=== PATIENT | male | born 1975 | race Two or more races ===

== ENCOUNTER 2022-03-31 20:59 | Inpatient (IN) | payer MEDICAID ==
[~2022-03-31] VITALS: Ht 170.2 cm; Wt 79.8 kg
--- NOTE | 2022-03-31 21:15 | NUR ---
JAY [address] WITH INFECTED WOUND ON LEFT LOWER LEG. PATIENT IS AAOX4. ABLE TO MAKE NEEDS KNOWN. VITALS CHECKED.
--- NOTE | 2022-03-31 21:47 | NUR ---
CLEANING OF WOUND DONE AT BEDSIDE
--- NOTE | 2022-03-31 21:56 | NUR ---
SEEN BY MD AT BEDSIDE
[2022-03-31] MEDS ORDERED: CEFEPIME 1 GM in IV D5W 50 ML IV ONE (22:00)
[2022-03-31] MEDS ORDERED: VANCOMYCIN 1 GM in IV D5W 250 ML IV ONE (22:00)
[2022-03-31] MEDS ORDERED: CEFEPIME 1 GM VIAL ONE (22:04)
--- NOTE | 2022-03-31 22:42 | NUR ---
IV CANNULA G20 INSERTED ON LEFT FA.
--- NOTE | 2022-03-31 22:43 | NUR ---
COVID SWAB DONE AND SENT TO LAB
--- NOTE | 2022-03-31 22:48 | NUR ---
XRAY DONE AT BEDSIDE
--- NOTE | 2022-03-31 22:49 | NUR ---
ACADEMIC SUPPORT DIRECTOR AT BEDSIDE
[2022-03-31] MEDS ORDERED: VANCOMYCIN 1 GM VIAL ONE (23:04)
--- NOTE | 2022-03-31 23:10 | NUR ---
SEEN BY RONI JESSICA AT BEDSIDE
[2022-03-31] MEDS ORDERED: MAGNESIUM HYDROXIDE 30 ML UDC PO PRN (23:30)
[2022-03-31] MEDS ORDERED: ONDANSETRON HCL/PF 4 MG/2 ML VIAL IVP PRN (23:30)
[2022-03-31] MEDS ORDERED: ZOLPIDEM TARTRATE 5 MG TABLET PO PRN (23:30)
[2022-03-31] MEDS ORDERED: MAG HYDROX/AL HYDROX/SIMETH 30 ML UDC PO PRN (23:30)
[2022-03-31] MEDS ORDERED: Z GUARD REMEDY 4 OZ OINT TP PRN (23:30)
[2022-03-31] MEDS ORDERED: HYDROMORPHONE INJ 2 MG/ML DISP.SYRIN IV PRN (23:30)
[2022-03-31] MEDS ORDERED: ACETAMINOPHEN 325 MG TABLET PO PRN (23:30)
[2022-04-01 00:06] LABS: BASOPHILS % (AUTO) 0.1 % (0.0-2.0); EOSINOPHILS % (AUTO) 0.1 % (0.0-6.0); HEMATOCRIT 23 % (39-51); HEMOGLOBIN 7.5 g/dL (13.5-17.5); LYMPHOCYTES # (AUTO) 0.7 K/uL (0.8-4.8); LYMPHOCYTES % (AUTO) 4.6 % (20.0-44.0); MEAN CORPUSCULAR HGB CONC 33 g/dl (31.0-36.0); MEAN CORPUSCULAR VOLUME 88 fL (80-96); MONOCYTES # (AUTO) 1.3 K/uL (0.1-1.30); MONOCYTES % (AUTO) 8.8 % (2.0-12.0); NEUTROPHILS # (AUTO) 12.8 K/uL (1.8-8.9); NEUTROPHILS % (AUTO) 86.4 % (43.0-81.0); PLATELET COUNT (AUTO) 345 K/uL (150-450); RED BLOOD CELL COUNT(AUTO) 2.55 MIL/uL (4.5-6.0); WHITE BLOOD COUNT (AUTO) 14.9 K/uL (4.3-11.0)
[2022-04-01 00:23] LABS: CALCIUM, SERUM 7.4 mg/dL (8.5-10.1); CREATININE 1.5 mg/dL (0.6-1.3); POTASSIUM 3.7 mmol/L (3.5-5.1)
[2022-04-01 00:25] LABS: C-REACTIVE PROTEIN 13.1 mg/dL (0.0-0.9)
[2022-04-01 00:37] LABS: ALBUMIN 1.5 g/dL (3.4-5.0); BILIRUBIN,TOTAL 0.8 mg/dL (0.2-1.0)
--- NOTE | 2022-04-01 02:30 | NUR ---
REPORT GIVEN RN MAY
--- NOTE | 2022-04-01 03:00 | NUR ---
MS RN ADMITTING NOTE RECEIVED REPORT FROM ER NURSE, VENKAT. PATIENT IS BEING TRANSPORTED ON GURNEY TO HIS ROOM ON . PATIENT IS ALERT AND ORIENTED, AO X 4. HE IS [place] SPEAKING, RN,SEPTEMBER, FINISHED INITIAL INTERVIEW IN [place]. PATIENT DENIES OF HAVING PAIN AT THIS MOMENT. PATIENT IS ON RA, NO S/S SOB OR DISTRESS. HIS IV ACCESS IS ON HIS LEFT FA, #20, SL. PATENT AND INTACT. PATIENT HAS LARGE WOUND ON HIS LEFT LOWER EXTREMITIES, SWELLING, WARM TO TOUCH, AND SOME OPEN WOUNDS ALSO HAVE SCANTY AMOUNT OF DRAINAGE. ORIENTED THE PATIENT WITH SURROUNDINGS, AND TEACH HIM HOW TO USE CALL HALE TO CALL FOR HELP. VITAL SIGNS WERE TAKEN BY MARJAN VILLANUEVA; PLEASE SEE METER ATTENDANT NOTES. PICTURES OF THE WOUND WERE TAKEN AND PRINTED OUT, BEING PUT IN THE PATIENT'S CHART. SAFETY MEASURES ARE IN PLACE: BED IN LOW AND LOCKED POSITION; CALL HALE IS IN REACH; SIDE RAILS UP X 2. WILL MONITOR THE PATIENT'S CONDITION AND PROVIDE THE CARE HE NEEDS.
--- NOTE | 2022-04-01 03:02 | NUR ---
TRANSFERRED TO ROOM
[2022-04-01] MEDS: IV NS 0.9% 1,000 ML IV PRN (04:32)
[2022-04-01 06:04] LABS: BASOPHILS % (AUTO) 0.2 % (0.0-2.0); EOSINOPHILS % (AUTO) 0.1 % (0.0-6.0); HEMATOCRIT 23 % (39-51); HEMOGLOBIN 7.5 g/dL (13.5-17.5); LYMPHOCYTES # (AUTO) 0.7 K/uL (0.8-4.8); LYMPHOCYTES % (AUTO) 5.5 % (20.0-44.0); MEAN CORPUSCULAR HGB CONC 32 g/dl (31.0-36.0); MEAN CORPUSCULAR VOLUME 89 fL (80-96); MONOCYTES # (AUTO) 1.2 K/uL (0.1-1.30); MONOCYTES % (AUTO) 9.4 % (2.0-12.0); NEUTROPHILS # (AUTO) 10.7 K/uL (1.8-8.9); NEUTROPHILS % (AUTO) 84.8 % (43.0-81.0); PLATELET COUNT (AUTO) 343 K/uL (150-450); RED BLOOD CELL COUNT(AUTO) 2.62 MIL/uL (4.5-6.0); WHITE BLOOD COUNT (AUTO) 12.6 K/uL (4.3-11.0)
[2022-04-01 06:34] LABS: CREATININE 1.4 mg/dL (0.6-1.3); MAGNESIUM 1.7 mg/dL (1.8-2.4); PHOSPHORUS 3.5 mg/dL (2.5-4.9); POTASSIUM 3.4 mmol/L (3.5-5.1)
--- NOTE | 2022-04-01 07:30 | NUR ---
RN Opening Note Patient AOx4 able to express his own concerns. Patient states no issues, asking to wait on wound care since it was changed 3 hrs ago. Patient with no signs of distress or discomfort. IV with no signs of infiltration, no respiratory distress. Patient states he would like to walk to the bathroom with assistance for BM, educated on safety precautions. Will continue to monitor and provide care throughout shift. All safety precautions taken, call light and table within reach, bed locked and at lowest position.
--- NOTE | 2022-04-01 07:35 | NUR ---
MS RN CLOSING NOTE PATIENT IS IN BED SLEEPING. HE IS CALM, NO S/S OF HAVING PAIN AT THIS MOMENT. PATIENT IS ON RA, NO S/S SOB OR DISTRESS. PATIENT'S IV ACCESS IS ON HIS LEFT FA, #20, RUNNING NS @100 ML/HOUR; PATENT AND INTACT. PATIENT'S WOUND DRESSING HAS BEEN CLEANED AND CHANGED DUE TO THE OLD DRESSING WAS SOILED. PATIENT'S LEFT LOWER EXTREMITY IS SWELLING AND WARM TO TOUCH. ELEVATED PATIENT'S FEET AND FLOATING HIS HEELS. SAFETY MEASURES ARE IN PLACE: BED IN LOW AND LOCKED POSITION; CALL HALE IS IN REACH; SIDE RAILS UP X 2. WILL ENDORSE THE NEXT SHIFT NURSE FOR CONTINUE PATIENT CARE.
[2022-04-01 08:00] VITALS: BP 126/74
--- NOTE | 2022-04-01 08:36 | NUR ---
WOUND CARE CONSULT: PT EATING BREAKFAST. REVIEWED CHART, NURSING DOCUMENTATION AND PHOTOS WHICH INDICATE PURULENT WOUNDS TO LOWER EXTREMITIES, PRESENT ON ADMISSION. DR MIRANDA CALLED FOR DPM CONSULT. MD IN AGREEMENT WITH PLAN OF CARE.
[2022-04-01] MEDS ORDERED: [UNRECOGNIZED DRUG - REMARK] PO (09:02)
[2022-04-01] MEDS ORDERED: UNK HTN PO (09:02)
[2022-04-01] MEDS: CEFEPIME 2 GM in IV D5W 100 ML IV SCH ×2 (09:58→20:57)
[2022-04-01] MEDS ORDERED: CEFEPIME 1 GM in IV D5W 50 ML IV SCH (10:00)
[2022-04-01] MEDS: VANCOMYCIN 1 GM in IV D5W 250ml IV SCH ×2 (11:19→22:23)
[2022-04-01] MEDS ORDERED: POTASSIUM CHLORIDE 20 MEQ TAB.PRT.SR PO SCH (11:30)
[2022-04-01] MEDS: Magnesium 1GM/D5W 100ML PREMIX 100 ML IV SCH ×2 (12:35→12:36)
[2022-04-01 16:00] VITALS: BP 145/75
--- NOTE | 2022-04-01 16:57 | NUR ---
SS consult received for possible homelessness. SW will follow up at a later time.
--- NOTE | 2022-04-01 18:53 | NUR ---
RN Closing Report Patient AOx4 able to express his own concerns. Patient remained stable throughout shift. All safety precautions taken. Call light and table within reach, bed at lowest position. Patient made aware of plan for wound treatment tomorrow and he verbalized agreement. Provided care as ordered and administered medications as prescribed. Will endorse to night nurse for continuity of care
--- NOTE | 2022-04-01 19:20 | NUR ---
MS RN OPENING NOTES RECEIVED PT IN BED SLEEPING AT THIS TIME. AROUSABLE TO NAME, A/O X4, ABLE TO MAKE NEEDS KNOWN. ON RA WITH NO S/S OF SOB OR LABORED BREATHING. DENIES PAIN AT THIS TIME. LLE DRESSING INTACT. IV LFA #20G PATENT AND INTACT, RUNNING NS @ 100 ML/HR. SAFETY MEASURES IN PLACE: BED LOCKED AND IN LOW POSITION, SIDE RAILS UP X2, CALL LIGHT WITHIN REACH. WILL CONTINUE TO MONITOR AND ASSIST.
[2022-04-01 20:00] VITALS: BP 119/72
[2022-04-02] MEDS: IV NS 0.9% 1,000 ML IV PRN (02:22)
[2022-04-02 05:55] LABS: BASOPHILS % (AUTO) 0.5 % (0.0-2.0); EOSINOPHILS % (AUTO) 0.2 % (0.0-6.0); HEMATOCRIT 23 % (39-51); HEMOGLOBIN 7.5 g/dL (13.5-17.5); LYMPHOCYTES # (AUTO) 0.9 K/uL (0.8-4.8); LYMPHOCYTES % (AUTO) 9.6 % (20.0-44.0); MEAN CORPUSCULAR HGB CONC 33 g/dl (31.0-36.0); MEAN CORPUSCULAR VOLUME 89 fL (80-96); MONOCYTES # (AUTO) 0.8 K/uL (0.1-1.30); MONOCYTES % (AUTO) 9.3 % (2.0-12.0); NEUTROPHILS # (AUTO) 7.3 K/uL (1.8-8.9); NEUTROPHILS % (AUTO) 80.4 % (43.0-81.0); PLATELET COUNT (AUTO) 331 K/uL (150-450); RED BLOOD CELL COUNT(AUTO) 2.56 MIL/uL (4.5-6.0); WHITE BLOOD COUNT (AUTO) 9.1 K/uL (4.3-11.0)
[2022-04-02 06:44] LABS: CALCIUM, SERUM 7.6 mg/dL (8.5-10.1); CREATININE 1.3 mg/dL (0.6-1.3); MAGNESIUM 1.9 mg/dL (1.8-2.4)
[2022-04-02 06:49] LABS: BILIRUBIN,URINE NEGATIVE (NEGATIVE); COLOR,URINE YELLOW (YELLOW); LEUKOCYTE ESTERASE ,URINE NEGATIVE (NEGATIVE); NITRITE, URINE NEGATIVE (NEGATIVE); PH,URINE 5.5 (5.0-8.0); PROTEIN,URINE NEGATIVE (NEGATIVE); UGLUCOSE NEGATIVE (NEGATIVE)
[2022-04-02] MEDS ORDERED: SUCCINYLCHOLINE CHLORIDE 20 MG/ML VIAL ONE (07:12)
[2022-04-02] MEDS ORDERED: HYDROMORPHONE INJ 2 MG/ML DISP.SYRIN ONE (07:12)
--- NOTE | 2022-04-02 07:15 | NUR ---
MS RN CLOSING NOTES PT IN BED AWAKE AT THIS TIME. AROUSABLE TO NAME, A/O X4, ABLE TO MAKE NEEDS KNOWN. STABLE ON RA WITH NO S/S OF SOB OR LABORED BREATHING. DENIES PAIN AT THIS TIME. LLE OUTER DRESSING REPLACED. IV RIGHT UPPER ARM MIDLINE PATENT AND INTACT, RUNNING NS @ 100 ML/HR. ALL CARE PROVIDED AND ADMINISTERED MEDICATIONS TOLERATED WELL. SURGERY STAFF ARRIVED AT UNIT TO LOG BUNCHER PATIENT FOR DEBRIDEMENT. SAFETY MEASURES MAINTAINED: BED LOCKED AND IN LOW POSITION, SIDE RAILS UP X2, CALL LIGHT WITHIN REACH. WILL ENDORSE AKILA TO DAY SHIFT NURSE.
--- NOTE | 2022-04-02 07:30 | NUR ---
RN Opening Note Patient AOx4 able to express his own concerns. Patient states no issues, Patient states he is ready for the scheduled wound debridement. IV with no signs of infiltration, no respiratory distress. Patient states he would like to walk to the bathroom with assistance for BM, educated on safety precautions. Will continue to monitor and provide care throughout shift. All safety precautions taken, call light and table within reach, bed locked and at lowest position.
[2022-04-02] MEDS ORDERED: ANESTHESIA TRAY IN PYXIS 1 EA TRAY MC ONE (07:34)
[2022-04-02] MEDS ORDERED: BUPIVACAINE 0.5 % PF 150 MG/30 ML VIAL ONE (07:35)
[2022-04-02] MEDS ORDERED: LIDOCAINE HCL/MPF 1% 30 ML VIAL IJ ONE (07:36)
[2022-04-02 07:40] LABS: BACTERIA,URINE Few /HPF (None Seen); SQUAMOUS EPITHELIAL CELL,UR Rare /HPF (None Seen); WBC,URINE 0-2 /HPF (0-3)
[2022-04-02] MEDS ORDERED: HYDROGEN PEROXIDE 480 ML BOTTLE ONE (08:17)
[2022-04-02] MEDS ORDERED: MEPERIDINE25 MG SYR 25 MG/ML VIAL ONE (08:55)
[2022-04-02] MEDS: CEFEPIME 2 GM in IV D5W 100 ML IV SCH ×2 (09:54→20:51)
[2022-04-02] MEDS: VANCOMYCIN 1 GM in IV D5W 250ml IV SCH (10:44)
[2022-04-02 16:25] VITALS: BP 132/71
--- NOTE | 2022-04-02 18:38 | NUR ---
RN Closing Report Patient AOx4 able to express his own concerns. Patient remained stable throughout shift. All safety precautions taken. Call light and table within reach, bed at lowest position. Patient educated on wound back and precautions needed. Provided care as ordered and administered medications as prescribed. Will endorse to night nurse for continuity of care
--- NOTE | 2022-04-02 19:23 | NUR ---
MS RN OPENING NOTES PT IN BED AWAKE AT THIS TIME. AROUSABLE TO NAME, A/O X4, ABLE TO MAKE NEEDS KNOWN. STABLE ON RA WITH NO S/S OF SOB OR LABORED BREATHING. DENIES PAIN AT THIS TIME. LLE OUTER DRESSING REPLACED. IV RIGHT UPPER ARM MIDLINE PATENT AND INTACT, RUNNING NS @ 100 ML/HR. ALL CARE. PT S/P DEBRIDEMENT AND WOUND VAC PLACEMENT TODAY. SAFETY MEASURES MAINTAINED: BED LOCKED AND IN LOW POSITION, SIDE RAILS UP X2, CALL LIGHT WITHIN REACH.
--- NOTE | 2022-04-02 20:30 | NUR ---
RN NOTE RECEIVED A CALL FROM PHARMACIST REGARDING PTS LOVENOX PER PHARMACIST PT HAS BOTH AN ORDER FOR HEPARIN AND LOVENOX PER PHARMACIST WILL D/C LOVENOX.
[2022-04-02 21:06] VITALS: BP 138/90
[2022-04-02] MEDS: VANCOMYCIN 0.75 GM in IV D5W 250 ML IV SCH (23:49)
[2022-04-03] VITALS (10 sets, daily range): BP systolic 138–160; BP diastolic 54–93
[2022-04-03 05:59] LABS: BASOPHILS # (AUTO) 0.1 K/uL (0.0-0.2); BASOPHILS % (AUTO) 1.1 % (0.0-2.0); EOSINOPHILS % (AUTO) 0.8 % (0.0-6.0); LYMPHOCYTES # (AUTO) 1.2 K/uL (0.8-4.8); LYMPHOCYTES % (AUTO) 16.2 % (20.0-44.0); MEAN CORPUSCULAR HGB CONC 33 g/dl (31.0-36.0); MEAN CORPUSCULAR VOLUME 89 fL (80-96); MONOCYTES # (AUTO) 0.7 K/uL (0.1-1.30); MONOCYTES % (AUTO) 9.6 % (2.0-12.0); NEUTROPHILS # (AUTO) 5.3 K/uL (1.8-8.9); NEUTROPHILS % (AUTO) 72.3 % (43.0-81.0); PLATELET COUNT (AUTO) 290 K/uL (150-450); RED BLOOD CELL COUNT(AUTO) 2.19 MIL/uL (4.5-6.0); WHITE BLOOD COUNT (AUTO) 7.3 K/uL (4.3-11.0)
[2022-04-03 06:13] LABS: BILIRUBIN,TOTAL 0.6 mg/dL (0.2-1.0); CALCIUM, SERUM 6.9 mg/dL (8.5-10.1); CREATININE 1.4 mg/dL (0.6-1.3); MAGNESIUM 1.6 mg/dL (1.8-2.4); PHOSPHORUS 3.5 mg/dL (2.5-4.9); POTASSIUM 4.3 mmol/L (3.5-5.1); TOTAL PROTEIN, SERUM 6.8 g/dL (6.4-8.2)
[2022-04-03 06:14] LABS: HEMATOCRIT 20 % (39-51); HEMOGLOBIN 6.5 g/dL (13.5-17.5)
[2022-04-03 06:20] LABS: ALBUMIN 1.3 g/dL (3.4-5.0)
--- NOTE | 2022-04-03 06:46 | NUR ---
RN NOTE RECEIVED CRITICAL LAB RESULT THIS MORNING HGB 6.5, HCT 20 ALBUMIN 1.3 REPORTED TO SURVEILLANCE SYSTEMS ENGINEER SUMMER ASSOCIATE MELISSA RECEIVED ORDER FOR 1 UNIT OF RBC ORDER NOTED AND CARRIED OUT.
--- NOTE | 2022-04-03 06:47 | NUR ---
MS RN CLOSING NOTES PT IN BED AWAKE AT THIS TIME. AROUSABLE TO NAME, A/O X4, ABLE TO MAKE NEEDS KNOWN. STABLE ON RA WITH NO S/S OF SOB OR LABORED BREATHING. DENIES PAIN AT THIS TIME. LLE OUTER DRESSING REPLACED. IV RIGHT UPPER ARM MIDLINE PATENT AND INTACT, RUNNING NS @ 100 ML/HR. ALL CARE. PT S/P DEBRIDEMENT AND WOUND VAC PLACEMENT YESTERDAY WOUND VAC TOTAL OUTPUT FOR SHIFT 72CC FOR A TOTAL OF 150CC IN WOUND VAC. SAFETY MEASURES MAINTAINED: BED LOCKED AND IN LOW POSITION, SIDE RAILS UP X2, CALL LIGHT WITHIN REACH. WILL ENDORSE CARE TO DAY SHIFT NURSE.
--- NOTE | 2022-04-03 07:30 | NUR ---
RN OPENING NOTE PATIENT RECEIVED IN BED AND SLEEPING. A/O X4; CITIZEN OF [place] SPEAKING. NO C/O PAIN, NO S/SX OF DISTRESS. MIDLINE IV ACCESS TO ARTIE INTACT AND PATENT. WOUND VAC TO LLE ATTACHED AND SUCTIONING/DRAINING. SAFETY PRECAUTIONS IN PLACE AT THIS TIME WITH BED LOW AND LOCKED. SIDE RAIL UPX2, CALL LIGHT WITHIN REACH. WILL CONT TO MONITOR.
--- NOTE | 2022-04-03 07:31 | NUR ---
WOUND CARE CONSULT: PT SEEN FOR RT BUTTOCK IRRITATION/EXCORIATED AREA. RECOMMENDATIONS MADE FOR SKIN PROTECTION AND DISCUSSED WITH NURSING STAFF. PT IS CONTINENT AT THIS TIME. PT NOTED TO HAVE KCI WOUND VAC TO LEFT LOWER EXTREMITY. VAC AT 125mm Hg CONTINUOUS SETTING WITH 225cc RED DRAINAGE IN CANISTER. WILL FOLLOW. MD IN AGREEMENT WITH PLAN OF CARE.
[2022-04-03] MEDS: CEFEPIME 2 GM in IV D5W 100 ML IV SCH ×2 (08:32→20:02)
[2022-04-03] MEDS ORDERED: Magnesium 1GM/D5W 100ML PREMIX 100 ML IV ONE (10:00)
[2022-04-03] MEDS: VANCOMYCIN 0.75 GM in IV D5W 250 ML IV SCH ×2 (11:45→23:28)
--- NOTE | 2022-04-03 11:50 | NUR ---
SS Consult: SS consult requested for homelessness. The pt. is a 46-year-old male pt. admitted for cellulitis in the lower extremity would. Upon SS consult, the pt. is Alert & Oriented x 4 and makes good eye contact. The pt. appears unkempt with depressed mood & affect. Pt.s speech is clear and thought process is WNL. Pt. remained, calm & cooperative throughout interview. Pt. denies SI/HI and states he has intermittent visual and auditory hallucinations. per pt. the hallucinations have recently began and pt. stated they tend to happen when he has been drinking without eating. Pt. denies commanding voices. BABAR explored pt.s living situation. Patient states he is experiencing homelessness and has been staying on the street and he was walking with no shoes on when it was raining and believes that how he got an infection. Pt. stated he does not have any income. SW explored pt.s drug & ETOH use. Pt. denies any drug use. Per pt. he drinks as often as possible. Per pt. he drinks about 3-5 beers almost daily. Pt. stated he is independent with some ADLs and needs assistance with others due to trouble ambulating. BABAR explored pt.s support system. Pt. states he has no support system. Plan: Pt. stated he is experiencing homelessness. Pt. signed homeless waiver and it was placed in the pt.s chart. BABAR discussed DC plan with Preeti GOODEN and discharge plan is jail vs. SNF placement, pending MD recommendation. BABAR provided pt. with the following homeless resources and pt. accepted them: Year-round shelters: [facility] [address] [place], [place] [phone] ; [facility] [address] [place] [address]; [facility] [id number] [facility]. [facility] [id number] Hygiene: [facility]: [address] [address] ; [facility] [address] [facility] ; [facility] [address] . Food Resources: [facility]- [address] [place]; Meet Each Need with Dignity ([facility]) [address] [place]; [facility] 15[address] [facility]; [facility] [address] [facility] [place]. Mental Health resources provided: [facility] [address] [place], [place] [address] ; [facility] [address] [facility] [address], [place], [place] [phone] ; [facility] [address] [facility] [place], [place] [phone] ; [facility] [address] [place], [place] [address] Healthcare Clinics: [facility] [address] [facility], [address] [place]. [place] ; [facility] [address] [facility] [address] [place] [address]; [facility] [address] [facility] [place] [address] [phone] Counseling--Outpatient [facility] [address] [facility] [address], [address] [place], [place] [address] (Specializes in in-depth psychotherapy for emotional distress: anxiety, depression, interpersonal conflicts, life transitions, childhood abuse) [facility] [address] [place] [address] (Assist with solving problem marital difficulties, separation & divorce, aging parents, & grief, chronic & terminal illness) [facility] [address] [place] [address] (Deal with loss & grief, anxiety, marital difficulties) Homebound/Mental Health Services [address] [facility], [address] [place], [place] [address] (Provide in-home mental services to people who are incapable of leaving their homes) [facility]eds of the Elderly Senior Service/Resource [facility] [address] [place] [address] [facility] [address] [facility] [place] [address] PSYCHIATRIC OUTPATIENT SERVICES [facility] Partial Hospitalization and Intensive Outpatient Program (Managed Care and [place] Only)[address] [facility] [phone] [facility] Partial Hospitalization and Outpatient [id number] [place], [place] [phone] [facility] [id number] [facility]. [address] [place], [place] [phone] [facility] Partial Hospitalization and Outpatient [id number] [facility] ([facility] [place], [phone] Substance Abuse resources provided included: [facility] Substance Abuse Self-Helpline ([facility]) ; CRI -HELP [address] [facility]. [place] [phone] ; [facility] [address] [facility] [address] ; [facility] [address] [facility] [phone] ; [facility] [address] [facility] [id number] ; [facility] 4940 [facility] [phone] ; [facility] 909 [facility] [phone] ; [facility] Substance Abuse Helpline([facility] ; [facility] ; [facility]; [facility]; [facility] [place]; [facility] [place]; [facility] [place]; [facility] [place]; [facility] [place]; [facility], [facility]. [place]; Alcoholics Anonymous -SFV; Zb-Ehht-Qctjvtr ; Marijuana Anonymous -[facility]V; Narcotics Anonymous www.na.org;
[2022-04-03 13:10] LABS: BAND % (MANUAL) 2 % (0.0-5.0); EOSINOPHILS % (MANUAL) 1 % (0-4); LYMPHOCYTES % (MANUAL) 16 % (16-48); MONOCYTES % (MANUAL) 3 % (0-11.0); NEUTROPHILS % (MANUAL) 78 (42-76)
[2022-04-03] MEDS: HYDROCODONE/APAP 10/325MG TABLET PO PRN (17:46)
--- NOTE | 2022-04-03 18:22 | NUR ---
RN CLOSING NOTE PATIENT REMAINED IN BED THROUGHOUT SHIFT. A/O X4, GREEK SPEAKING BUT ABLE TO VERBALIZE ALL NEEDS. RECEIVED 1 UNIT OF PRBC ON SHIFT. TOLERATED TRANSFUSION WELL WITH NO ADVERSE REACTION. PATIENT C/O PAIN TO AFFECTED LEFT LEG. RECEIVED PRN NORCO. MEDICATION EFFECTIVE. IV ACCESS TO RIGHT UPPER ARM REMAINED INTACT AND PATENT THROUGHOUT SHIFT. WOUND VAC TO AFFECTED LEFT LEG REMOVED BY PHYSICIAN. WET/DRY DRESSING PLACED ON AFFECTED AREA. WOUND VAC PLACED IN DIRTY LINEN/EQUIPEMENT ROOM. DRAINAGE AMOUNT ON SHIFT WAS 100ML. SAFETY PRECAUTIONS REMAIN IN PLACE AT THIS TIME WITH BED LOW AND LOCKED. SIDE RAIL UPX2, CALL LIGHT WITHIN REACH. WILL CONT TO MONITOR.
--- NOTE | 2022-04-03 19:30 | NUR ---
RN OPENING NOTES PT STABLE. NO S/SX OF RESPIRATORY DISTRESS NOTED. ALL NEEDS MET AT THIS TIME.
[2022-04-03 21:51] LABS: HEMOGLOBIN 7.3 g/dL (13.5-17.5)
[2022-04-04] MEDS: IV NS 0.9% 1,000 ML IV PRN (05:12)
[2022-04-04 06:01] LABS: BASOPHILS # (AUTO) 0.1 K/uL (0.0-0.2); BASOPHILS % (AUTO) 1.2 % (0.0-2.0); EOSINOPHILS % (AUTO) 2.3 % (0.0-6.0); HEMATOCRIT 23 % (39-51); HEMOGLOBIN 7.5 g/dL (13.5-17.5); LYMPHOCYTES # (AUTO) 1.2 K/uL (0.8-4.8); LYMPHOCYTES % (AUTO) 20.8 % (20.0-44.0); MEAN CORPUSCULAR HGB CONC 33 g/dl (31.0-36.0); MEAN CORPUSCULAR VOLUME 88 fL (80-96); MONOCYTES # (AUTO) 0.7 K/uL (0.1-1.30); MONOCYTES % (AUTO) 11.4 % (2.0-12.0); NEUTROPHILS # (AUTO) 3.8 K/uL (1.8-8.9); NEUTROPHILS % (AUTO) 64.3 % (43.0-81.0); PLATELET COUNT (AUTO) 299 K/uL (150-450); RED BLOOD CELL COUNT(AUTO) 2.59 MIL/uL (4.5-6.0); WHITE BLOOD COUNT (AUTO) 5.9 K/uL (4.3-11.0)
[2022-04-04 06:24] LABS: BILIRUBIN,TOTAL 0.6 mg/dL (0.2-1.0); CALCIUM, SERUM 7.2 mg/dL (8.5-10.1); CREATININE 1.3 mg/dL (0.6-1.3); MAGNESIUM 1.8 mg/dL (1.8-2.4); PHOSPHORUS 4.1 mg/dL (2.5-4.9); POTASSIUM 4.4 mmol/L (3.5-5.1); TOTAL PROTEIN, SERUM 6.8 g/dL (6.4-8.2)
[2022-04-04 06:32] LABS: ALBUMIN 1.3 g/dL (3.4-5.0)
--- NOTE | 2022-04-04 06:49 | NUR ---
RN CLOSING NOTES PT STABLE. NO S/SX OF RESPIRATORY DISTRESS NOTED. ALL NEEDS MET. ALL ORDERS CARRIED OUT. PT KEPT CLEAN AND DRY. WILL ENDORSE TO ONCOMING SHIFT FOR AKILA.
--- NOTE | 2022-04-04 07:00 | NUR ---
MS RN OPENING NOTES; RECEIVED PT IN BED ASLEEP, GRENADIAN SPEAKER . ALERT AND ORIENTED X 4, NO SOB OR CARDIAC DISTRESS NOTED. DENIES PAIN AT THIS TIME. NOTED WITH IV ACCESS ON ARTIE MIDLINE GAUGE 18 PATENT INTACT AND INFUSING IV FLUIDS NS @100ML/HR. SAFETY MEASURES MAINTAINED; BED LOCKED AND IN LOWEST POSITION, SIDE RAILS UP X 2. CALL LIGHT IN EASY REACH FOR HELP. WILL MONITOR PT ACCORDINGLY.
[2022-04-04 08:00] VITALS: BP 155/90
[2022-04-04] MEDS: CEFEPIME 2 GM in IV D5W 100 ML IV SCH ×2 (09:03→20:14)
[2022-04-04] MEDS: VANCOMYCIN 0.75 GM in IV D5W 250 ML IV SCH (11:00)
--- NOTE | 2022-04-04 12:19 | NUR ---
RN NOTES; VANCO TROUGH IS 23 PER PHARMACIST NEXT VANCO IV DOSE WILL BE TONIGHT @2300.
[2022-04-04 16:00] VITALS: BP 164/96
[2022-04-04] MEDS: HYDROCODONE/APAP 10/325MG TABLET PO PRN (17:26)
--- NOTE | 2022-04-04 18:41 | NUR ---
MS RN CLOSING NOTES: PATIENT AWAKE, ALERT AND ORIENTED X 4 SAMMARINESE SPEAKING. NO SOB OR CARDIAC DISTRESS NOTED. DENIES PAIN AT THIS TIME.IV ACCESS ON ARTIE MIDLINE GAUGE 18, PATENT, INTACT AND INFUSING NS @100ML/HR. WOUND CARE TREATMENT ORDERED, PAIN MEDS GIVEN PRIOR TO WOUND CARE. SAFETY MEASURES MAINTAINED: BED LOCKED AND IN LOWEST POSITION, SIDE RAILS UP X 2 CALL LIGHT IN EASY REACH. ENDORSED TO GRINDING AND SPRAYING SUPERVISOR RN FOR CONTINUITY OF CARE.
[2022-04-04 20:00] VITALS: BP 161/93
--- NOTE | 2022-04-04 20:00 | NUR ---
MS RN OPENING NOTES RECEIVED PT IN BED ASLEEP, BULGARIAN SPEAKER . ALERT AND ORIENTED X 4, NO SOB OR CARDIAC DISTRESS NOTED. DENIES PAIN AT THIS TIME. NOTED WITH IV ACCESS ON ARTIE MIDLINE #18 PATENT INTACT AND INFUSING IV FLUIDS NS @100ML/HR. SAFETY MEASURES MAINTAINED; BED LOCKED AND IN LOWEST POSITION, SIDE RAILS UP X 2. CALL LIGHT IN EASY REACH FOR HELP. WILL MONITOR PT ACCORDINGLY.
[2022-04-04] MEDS: VANCOMYCIN 1.25 GM in IV D5W 250 ML IV SCH (23:46)
--- NOTE | 2022-04-05 00:20 | NUR ---
RN NOTES - CONSTIPATION NO BOWEL MOVEMENT FOR 3 DAYS NOW. HYPOACTIVE RIGHT UPPER AND LOWER Q. GIVEN MILK OF MAGNESIA 30ML ORALLY PRN FOR CONSTIPATION. WILL CONTINUE TO MONITOR
[2022-04-05] MEDS: IV NS 0.9% 1,000 ML IV PRN (01:16)
[2022-04-05 06:28] LABS: CALCIUM, SERUM 7.2 mg/dL (8.5-10.1); CREATININE 1.2 mg/dL (0.6-1.3); POTASSIUM 4.2 mmol/L (3.5-5.1)
--- NOTE | 2022-04-05 06:49 | NUR ---
MS RN CLOSING NOTES PATIENT AWAKE, ALERT AND ORIENTED X 4 INDONESIAN SPEAKING, UNDERSTANDS BULGARIAN. NO SOB OR CARDIAC DISTRESS NOTED. DENIES PAIN AT THIS TIME. IV ACCESS ON ARTIE MIDLINE #18, PATENT, INTACT AND INFUSING NS @100ML/HR. WOUND CARE TREATMENT ORDERED, PAIN MEDS GIVEN PRIOR TO WOUND CARE. DUE MEDS GIVEN. AM CARE DONE. SAFETY MEASURES MAINTAINED: BED LOCKED AND IN LOWEST POSITION, SIDE RAILS UP X 2 CALL LIGHT IN EASY REACH. ENDORSED TO DAY SHIFT RN FOR CONTINUITY OF CARE.
--- NOTE | 2022-04-05 07:46 | NUR ---
MS RN OPENING NOTE RECEIVED PT IN BED ASLEEP, EASILY AROUSABLRE. TAIWANESE SPEAKER . ALERT AND ORIENTED X 4, NO SOB OR CARDIAC DISTRESS NOTED. DENIES PAIN AT THIS TIME. NOTED WITH IV ACCESS ON ARTIE MIDLINE GAUGE 18 PATENT INTACT AND INFUSING IV FLUIDS NS @100ML/HR. SAFETY MEASURES MAINTAINED; BED LOCKED AND IN LOWEST POSITION, SIDE RAILS UP X 2. CALL LIGHT IN EASY REACH FOR HELP. WILL MONITOR PT ACCORDINGLY.
[2022-04-05 08:00] VITALS: BP 155/81
[2022-04-05] MEDS: CEFEPIME 2 GM in IV D5W 100 ML IV SCH ×2 (08:23→21:35)
[2022-04-05] MEDS: HYDROCODONE/APAP 10/325MG TABLET PO PRN (10:18)
[2022-04-05] MEDS ORDERED: BISACODYL SUPP (10 MG) 10 MG/SUPP.RECT SUPP.RECT RC PRN (14:30)
--- NOTE | 2022-04-05 15:57 | NUR ---
MS RN NOTES PATIENT NOTED WITH CONSTIPATION X 3 DAYS AND WAS GIVEN PRN 10 MG BISACODYL SUPPOSITORY ORDERED. PATIENT HAD BM X 1.
[2022-04-05 16:00] VITALS: BP 160/85
[2022-04-05] MEDS ORDERED: PNEUMOCOCCAL 23-VAL P-SAC VAC 0.5 ML VIAL SQ ONE (16:00)
[2022-04-05] MEDS ORDERED: INFLUENZA VACCINE 2022-23 0.5 ML DISP.SYRIN IM ONE (17:00)
--- NOTE | 2022-04-05 18:13 | NUR ---
MS RN CLOSING NOTES: PATIENT AWAKE, ALERT AND ORIENTED X 4 BERMUDIAN SPEAKING. NO SOB OR CARDIAC DISTRESS NOTED. DENIES PAIN AT THIS TIME.IV ACCESS ON ARTIE MIDLINE GAUGE 18, PATENT, INTACT AND INFUSING NS @100ML/HR. WOUND CARE TREATMENT ORDERED, PAIN MEDS GIVEN PRIOR TO WOUND CARE. RN ADMINISTERED BISCODYL SUPPOSITORY PA WHICH EFFECTIVELY STIMULATED PATIENT TO HAVE BOWEL MOVEMENT ON BEDPAN. SAFETY MEASURES MAINTAINED: BED LOCKED AND IN LOWEST POSITION, SIDE RAILS UP X 2 CALL LIGHT IN EASY REACH. ENDORSED TO SHUTTLE FIXER RN FOR CONTINUITY OF CARE.
--- NOTE | 2022-04-05 19:38 | NUR ---
MS RN OPENING NOTE RECEIVED PT IN BED ASLEEP, EASILY AROUSABLE. THAI SPEAKER . ALERT AND ORIENTED X 4, NO SOB OR CARDIAC DISTRESS NOTED. DENIES PAIN AT THIS TIME. NOTED WITH IV ACCESS ON ARTIE MIDLINE GAUGE 18 PATENT INTACT AND INFUSING IV FLUIDS NS @100ML/HR. SAFETY MEASURES MAINTAINED; BED LOCKED AND IN LOWEST POSITION, SIDE RAILS UP X 2. CALL LIGHT IN EASY REACH FOR HELP. WILL MONITOR PT ACCORDINGLY.
[2022-04-05 20:03] LABS: BASOPHILS # (AUTO) 0.1 K/uL (0.0-0.2); EOSINOPHILS % (AUTO) 2.4 % (0.0-6.0); HEMATOCRIT 23 % (39-51); HEMOGLOBIN 7.6 g/dL (13.5-17.5); LYMPHOCYTES # (AUTO) 1.3 K/uL (0.8-4.8); LYMPHOCYTES % (AUTO) 26.2 % (20.0-44.0); MEAN CORPUSCULAR HGB CONC 33 g/dl (31.0-36.0); MEAN CORPUSCULAR VOLUME 88 fL (80-96); MONOCYTES # (AUTO) 0.5 K/uL (0.1-1.30); MONOCYTES % (AUTO) 10.3 % (2.0-12.0); NEUTROPHILS % (AUTO) 60.1 % (43.0-81.0); PLATELET COUNT (AUTO) 293 K/uL (150-450); RED BLOOD CELL COUNT(AUTO) 2.61 MIL/uL (4.5-6.0); WHITE BLOOD COUNT (AUTO) 5.1 K/uL (4.3-11.0)
[2022-04-05 22:16] LABS: EOSINOPHILS % (MANUAL) 1 % (0-4); LYMPHOCYTES % (MANUAL) 18 % (16-48); MONOCYTES % (MANUAL) 7 % (0-11.0); NEUTROPHILS % (MANUAL) 74 (42-76)
[2022-04-05] MEDS: VANCOMYCIN 1.25 GM in IV D5W 250 ML IV SCH (23:08)
[2022-04-06 06:23] LABS: CALCIUM, SERUM 7.6 mg/dL (8.5-10.1); CREATININE 1.2 mg/dL (0.6-1.3); POTASSIUM 4.3 mmol/L (3.5-5.1)
--- NOTE | 2022-04-06 06:45 | NUR ---
MS RN CLOSING NOTES PATIENT AWAKE, ALERT AND ORIENTED X 4 UPPER SORBIAN SPEAKING, UNDERSTANDS BENINESE. NO SOB OR CARDIAC DISTRESS NOTED. DENIES PAIN AT THIS TIME. IV ACCESS ON ARTIE MIDLINE #18, PATENT, INTACT AND INFUSING NS @100ML/HR. WOUND CARE TREATMENT ORDERED, PAIN MEDS GIVEN PRIOR TO WOUND CARE. DUE MEDS GIVEN. AM CARE DONE. SAFETY MEASURES MAINTAINED: BED LOCKED AND IN LOWEST POSITION, SIDE RAILS UP X 2 CALL LIGHT IN EASY REACH. ENDORSED TO DAY SHIFT RN FOR CONTINUITY OF CARE.
--- NOTE | 2022-04-06 07:35 | NUR ---
MS RN OPENING NOTE RECEIVED PATIENT AWAKE IN BED ASLEEP, ESTONIAN SPEAKER ONLY, AOX4, ABLE TO FULLY MAKE NEEDS KNOWN, NO SOB OR CARDIAC DISTRESS NOTED. DENIES PAIN AT THIS TIME. NOTED WITH IV ACCESS ON ARTIE MIDLINE GAUGE 18 PATENT INTACT AND INFUSING IV FLUIDS NS @100 ML/HR. SAFETY MEASURES MAINTAINED; BED LOCKED AND IN LOWEST POSITION, SIDE RAILS UP X 2. CALL LIGHT AND TRAY TABLE WITHIN EASY REACH. WILL MONITOR THROUGHOUT MY SHIFT.
[2022-04-06 08:00] VITALS: BP 173/97
[2022-04-06] MEDS: CEFEPIME 2 GM in IV D5W 100 ML IV SCH ×2 (08:00→20:37)
[2022-04-06] MEDS ORDERED: AMOX-430 PO (14:08)
[2022-04-06] MEDS ORDERED: HYDR-3980 PO (14:08)
[2022-04-06] MEDS ORDERED: ACET325T53 PO (14:08)
[2022-04-06] MEDS ORDERED: BISA10SU61 RC (14:08)
--- NOTE | 2022-04-06 14:55 | NUR ---
Social Service Note SW was informed by CM that pt. was in need of intermediate placement. SW met with pt. at bedside. Pt. stated that he needed directions to go to [facility] urgent care. Pt stated he was homeless but that [facility] had information for him regarding housing. SW offered pt. homeless resources and directions to [facility] ([address] [place] [address]) and directions to [facility] ([address] [place] [address]). Pt. accepted them all. Pt stated he was not ambulatory and was in need of a wheel chair. SW discussed pt.'s needs in which nurse was agreeable. --- Year-round shelters: [place] [facility] [address] [address] ; [facility] [address] [place] [address]; [facility] [id number] [facility]. [facility] [address] Hygiene: [facility] [facility]: [address] [facility] ; [facility] [address] [facility] ; [facility] 6901 [facility] . Food Resources: [place] [facility] at [facility]- [address] [facility]. [place]; Meet Each Need with Dignity ([facility]) [address] [facility]; [facility] 4[address] [facility]; [facility] [address] [facility]. Mental Health resources provided: [facility] [address] [place] [address] ; [facility] [address] [facility] [address], [place] [address] ; [facility] [address] [place] [address] ; [facility] [address] [place], [place] [address] Healthcare Clinics: [facility] [address] [facility], [address] [place]. [place] ; [facility] [address] [facility] [address] [facility] [address]; [place] [address] [place] [address] [phone]) [phone] Counseling--Outpatient [facility] [address] [facility], [place] [address] (Specializes in in-depth psychotherapy for emotional distress: anxiety, depression, interpersonal conflicts, life transitions, childhood abuse) [facility] [address] [place] [address] (Assist with solving problem marital difficulties, separation & divorce, aging parents, & grief, chronic & terminal illness) [facility] [address] [place] [address] (Deal with loss & grief, anxiety, marital difficulties) Homebound/Mental Health Services [address] [facility], [address] [place] [address] (Provide in-home mental services to people who are incapable of leaving their homes) [facility] Senior Service/Resource Center [address] [facility] [place] [address] [facility] [address] [facility] [place] [address] PSYCHIATRIC OUTPATIENT SERVICES [facility] Partial Hospitalization and Intensive Outpatient Program (Managed Care and [place] Only)[address] [facility], [facility] [phone] [facility] Partial Hospitalization and Outpatient [id number] [facility] [address] [place], [place] [phone] [facility] [id number] [facility] [address] [place], [place] [phone] [facility] Partial Hospitalization and Outpatient [id number] eliTexas [facility] Pres[facility] [place], [phone] Substance Abuse resources provided included: [facility] Substance Abuse Self-Helpline ([facility]) ; [facility] [address] [facility] [place] [address] ; [facility] [address] [facility] [address] ; [facility] [address] [place] [address] ; [facility] [address] [facility] [phone] ; [facility] 4[address] [place] [facility] [address] ; [facility] 909 [facility] [phone] ; [facility] Substance Abuse Helpline([facility] ; [facility] Family [facility] ; [facility] [place]; [facility] [place]; [facility] [place]; [facility] [place]; [place] [place]; [facility]; [facility] [place]; Alcoholics Anonymous -SFV; Jj-Mbxk-Eipadjf ; Marijuana Anonymous -SFV; Narcotics Anonymous www.na.org;
--- NOTE | 2022-04-06 15:00 | NUR ---
RN NOTES - RECEIVED A CALL FROM CM, PATIENT IS BE DISCHARGED TO LONG TERM THIS AFTERNOON, CM WILL PROVIDE WHEELCHAIR, CM GAVE RESOURCE MATERIALS ALREADY. BABAR PADILLA ALSO CHECKED TOUCHED BASE WITH THE PATIENT.
[2022-04-06 16:00] VITALS: BP 160/80
--- NOTE | 2022-04-06 19:32 | NUR ---
MS RN CLOSING NOTE PATIENT AWAKE IN BED, COSTA RICAN SPEAKER ONLY, AOX4, ABLE TO FULLY MAKE NEEDS KNOWN, NO SOB OR CARDIAC DISTRESS NOTED. DENIES PAIN AT THIS TIME. NOTED WITH IV ACCESS ON ARTIE MIDLINE GAUGE 18 PATENT INTACT. PATIENT WAS SUPPOSED TO BE DISCHARGED TONIGHT BUT POSTPONED SKILLED NURSING MIGHT BE CLOSED ALREADY, CHARGE NURSE IS AWARE, INFUSION HAS BEEN STOPPED, ENDORSED TO THE CHEMICAL PLANT WORKER NURSE. ALL DUE MEDS GIVEN, ALL NEEDS MET. SAFETY MEASURES MAINTAINED; BED LOCKED AND IN LOWEST POSITION, SIDE RAILS UP X 2. CALL LIGHT AND TRAY TABLE WITHIN EASY REACH. ENDORSED TO CHEMICAL PLANT WORKER NURSE.
[2022-04-06 20:00] VITALS: BP 152/102
--- NOTE | 2022-04-06 20:17 | NUR ---
MS RN OPENING NOTE RECEIVED PATIENT AWAKE IN BED, YAKUT SPEAKER ONLY, AOX4, ABLE TO FULLY MAKE NEEDS KNOWN, NO SOB OR CARDIAC DISTRESS NOTED. DENIES PAIN AT THIS TIME. NOTED WITH IV ACCESS ON RATIE MIDLINE #18, PATENT INTACT AND INFUSING IV FLUIDS NS @100 ML/HR. SAFETY MEASURES MAINTAINED; BED LOCKED AND IN LOWEST POSITION, SIDE RAILS UP X 2. CALL LIGHT AND TRAY TABLE WITHIN EASY REACH. FOR DISCHARGE TOMORROW AM. WILL CONTINUE TO MONITOR.
--- NOTE | 2022-04-07 06:41 | NUR ---
MS RN CLOSING NOTE PATIENT LYING ASLEEP IN BED, PALESTINIAN SPEAKING, UNDERSTANDS [place], AOX4, ABLE TO FULLY MAKE NEEDS KNOWN, NO SOB OR CARDIAC DISTRESS NOTED. DENIES PAIN AT THIS TIME. NOTED WITH IV ACCESS ON ARTIE MIDLINE #18, PATENT INTACT AND INFUSING IV FLUIDS NS @100 ML/HR. DUE MEDS GIVEN. WOUND CARE DONE. TOLERATED PROCEDURE WELL. FOR DISCHARGE TODAY AM. SAFETY MEASURES MAINTAINED; BED LOCKED AND IN LOWEST POSITION, SIDE RAILS UP X 2. CALL LIGHT AND TRAY TABLE WITHIN EASY REACH. FOR DISCHARGE TOMORROW AM. WILL ENDORSE TO NEXT SHIFT RN FOR AKILA.
--- NOTE | 2022-04-07 07:35 | NUR ---
MS RN OPENING NOTE RECEIVED PATIENT AWAKE IN BED, AOX4, BELIZEAN SPEAKER ONLY, ABLE TO FULLY MAKE NEEDS KNOWN, NO SOB OR CARDIAC DISTRESS NOTED. DENIES PAIN AT THIS TIME. NOTED WITH IV ACCESS ON ARTIE MIDLINE GAUGE 18 AND RFA GAUGE 20, PATENT INTACT, SALINE LOCKED, PATIENT REFUSED FLUIDS. SAFETY MEASURES MAINTAINED; BED LOCKED AND IN LOWEST POSITION, SIDE RAILS UP X 2. CALL LIGHT AND TRAY TABLE WITHIN EASY REACH. PATIENT FOR DISCHARGE THIS MORNING. WILL MONITOR THROUGHOUT MY SHIFT.
[2022-04-07 08:00] VITALS: BP 154/90
[2022-04-07] MEDS: CEFEPIME 2 GM in IV D5W 100 ML IV SCH (09:00)
--- NOTE | 2022-04-07 09:10 | NUR ---
MS TIMEKEEPING SUPERVISOR NOTES PT DISCHARGED TO HOME/DETENTION IN STABLE CONDITION. PT AOX4, KYRGYZ SPEAKING ONLY, ABLE TO MAKE NEEDS KNOWN, ON ROOM AIR SATURATING WELL WITH SPO2 OF 96% WITHOUT ANY RESPIRATORY DISTRESS NOR ANY APPARENT DISTRESS. VITAL SIGNS TAKEN, STABLE AND RECORDED. WOUND CARE PROVIDED ON LLE WOUNDS (HEEL AND LEG), DECLINED TO TAKE PICTURES, LAST PICTURES TAKEN ON WEDNESDAY. DENIES DISCOMFORT OR PAIN AT THIS TIME. ALL BELONGINGS ACCOUNTED FOR, FORM SIGNED. DISCHARGE INSTRUCTIONS WERE RELAYED TO THE PATIENT USING HEEL TRIMMER, ASKED ALL PATIENT'S QUESTIONS. ANTIBIOTICS FOR 7 DAYS WERE PROVIDED BY PHARMACY. RESOURCES FOR DETENTION AND [facility] PROVIDED BY LABORATORY CHIEF RANDY, GIVEN JACKET, SHIRT, AND PANTS, AMPLE WOUND AND DRESSING, CLEANING SUPPLIES, TAP CARD AND WHEELCHAIR WERE PROVIDED WELL. IV ACCESSES REMOVED ARTIE MIDLINE G#18 AND RFA G#20 SAFELY, NO ACTIVE BLEEDING NOTED, APPLIED PRESSURE GAUZE. PATIENT LEFT THE UNIT AT AROUND 0902 ON WHEELCHAIR ASSISTED BY KAY ALEJO MD AND CHARGE NURSE AWARE.
== END 2022-04-07 13:53 | disposition home or self-care (01) | DRG 710 ==
LOC: ER 21:06 → MED 04-01 01:59
PROVIDERS: ADMIT Nurse Practitioner Acute Care
PROC: 05HB33Z Insertion of Infusion Device into Right Basilic Vein, Percutaneous Approach (ICD-10-PCS; 2022-04-01)
PROC: 0KBT0ZZ Excision of Left Lower Leg Muscle, Open Approach (ICD-10-PCS; principal; 2022-04-02)
PROC: 30233N1 Transfusion of Nonautologous Red Blood Cells into Peripheral Vein, Percutaneous Approach (ICD-10-PCS; 2022-04-03)
DX: A41.9 Sepsis, unspecified organism (principal); N17.0 Acute kidney failure with tubular necrosis; L02.416 Cutaneous abscess of left lower limb; E44.0 Moderate protein-calorie malnutrition; L03.116 Cellulitis of left lower limb; E87.1 Hypo-osmolality and hyponatremia; L97.529 Non-pressure chronic ulcer of other part of left foot with unspecified severity; I12.9 Hypertensive chronic kidney disease with stage 1 through stage 4 chronic kidney disease, or unspecified chronic kidney disease; N18.9 Chronic kidney disease, unspecified; E11.22 Type 2 diabetes mellitus with diabetic chronic kidney disease; E86.1 Hypovolemia; D64.9 Anemia, unspecified; Z59.00 Homelessness unspecified; E83.42 Hypomagnesemia; E87.6 Hypokalemia; K59.00 Constipation, unspecified; F17.200 Nicotine dependence, unspecified, uncomplicated; E11.621 Type 2 diabetes mellitus with foot ulcer; E11.622 Type 2 diabetes mellitus with other skin ulcer; L97.929 Non-pressure chronic ulcer of unspecified part of left lower leg with unspecified severity; G89.29 Other chronic pain
CPT/HCPCS: 36410; 36415; 73590-TC; 73630-TC; 73700-TC; 80048-TC; 80053-TC; 80202-TC; 81001; 82962-TC; 83605-TC; 83735-TC; 84100-TC; 85025-TC; 85027-TC; 85652-TC; 86140-TC; 86850-TC; 87040-TC; 87081-TC; A4217; A6209; A6253; A6403; C9803; G0378; J0330; J0690; J0692; J1170; J2175; J2405; J2704; J2765; J3370; J3475; J3490; J7030; J7040; J7050; J7060; P9016; Q2036